=== PATIENT | male | born 1975 | race Caucasian/White ===

== ENCOUNTER 2021-04-06 02:15 | Emergency (ER) | payer OTHER ==
[~2021-04-06] VITALS: Ht 177.8 cm; Wt 87.0 kg
[2021-04-06] MEDS ORDERED: MAGNESIUM/ALUMINUM HYDROXIDE/SIMETHICONE 30ML UDC PO STA (02:49)
[2021-04-06] MEDS ORDERED: VISCOUS LIDOCAINE 2% 15 ML UDC PO STA (02:49)
[2021-04-06] MEDS ORDERED: DICYCLOMINE 10 MG/5 ML ORAL SYR PO STA (02:49)
[2021-04-06] MEDS ORDERED: SODIUM CHLORIDE 0.9% 1,000 ML IV ONE (03:00)
[2021-04-06 03:21] LABS: CHLORIDE 104 mEq/L (98-107)
[2021-04-06 03:24] LABS: EOSINOPHILS % 2.2 % (0.0-5.0); HEMATOCRIT. 43.9 % (42.0-52.0); HEMOGLOBIN. 15.4 g/dL (14.0-18.0); LYMPHOCYTES % 29.5 % (20.0-50.0); MEAN CORPUSCULAR HEMOGLOBIN 28.1 pg (28.0-32.0); MEAN CORPUSCULAR VOLUME 80.4 fL (80.0-94.0); MEAN PLATELET VOLUME 6.7 fl (7.4-10.4); MONOCYTES % 11.6 % (2.0-8.0); NEUTROPHILS % 55.7 % (40.0-76.0); PLATELET 268 x1000/uL (130-400); RED BLOOD CELL COUNT 5.47 mill/uL (4.7-6.1); RED CELL DISTRIBUTION WIDTH 13.1 % (11.6-14.6)
[2021-04-06] MEDS ORDERED: LIDOCAINE HCL 20 MG/ML 100ML BOTTLE PO NR (03:30)
[2021-04-06] MEDS ORDERED: KETOROLAC 30MG/ML VIAL IV STA (03:51)
[2021-04-06] MEDS ORDERED: POTASSIUM CHLORIDE 20MEQ TABLET SR PO ONE (04:00)
[2021-04-06] MEDS ORDERED: POTASSIUM CHLORIDE 20MEQ TABLET SR PO NR (04:15)
[2021-04-06] MEDS ORDERED: OMEP40CA20 MT (04:58)
[2021-04-06 05:01] VITALS: BP 144/91
== END 2021-04-06 05:01 | disposition home or self-care (01) ==
LOC: ER 02:15
DX: R10.9 Unspecified abdominal pain (principal); E87.6 Hypokalemia; J45.909 Unspecified asthma, uncomplicated; Z87.891 Personal history of nicotine dependence
CPT/HCPCS: 36415; 71045; 80053; 83690; 85025; 93005; 96361; 96374; 99285; J1885